=== PATIENT | male | born 1980 | race Caucasian/White ===

== ENCOUNTER 2016-12-16 13:25 | Emergency (ER) | payer OTHER ==
[2016-12-16 14:14] VITALS: BP 144/87
--- NOTE | 2016-12-16 14:16 | UC ---
Neck Pain HPI - HPI Summary HPI Summary: He was trying to crack his 's back and was pulling her and felt a sudden strain/pain in right neck. no numbness or weakness in the right arm. It hurts more to turn his head suddenly. It feels better to sleep without pillow. this has been 5 days. motrin helps a little. - History of Current Complaint Chief Complaint: UCBackPain Stated Complaint: NECK PAIN 5 DAYS Time Seen by Provider: 12/16/16 14:03 Hx Obtained From: Patient Onset/Duration Of Injury/Symptoms: Days Timing: Constant Onset/Duration: Sudden Onset Severity: Moderate Location: Discrete At: - right neck. Character: Aching, Stiff Aggravating Factors: Position, Movement Alleviating Factors: Position Associated Signs & Symptoms: Positive: Negative - Allergies/Home Medications Allergies/Adverse Reactions: Allergies Allergy/AdvReac Type Severity Reaction Status Date / Time No Known Allergies Allergy Verified 12/16/16 14:05 PMH/Surg Hx/FS Hx/Imm Hx Endocrine History Of: Denies: Diabetes - Surgical History Surgical History: Yes Surgery Procedure, Year, and Place: ear tubes - Family History Known Family History: Positive: None - no related neck family history. - Social History Alcohol Use: Rare Substance Use Type: None Smoking Status (MU): Former Smoker Review Of Systems All Other Systems Reviewed And Are Negative: Yes Physical Exam Triage Information Reviewed: Yes Appearance: Well-Appearing, No Pain Distress, Well-Nourished Vital Signs Reviewed: Yes Eyes: Positive: Conjunctiva Clear. Negative: Conjunctiva Inflamed ENT Exam: Normal Neck exam: Normal Neck: Positive: Supple - neck full rom with some pain at the extremes. Spurling neg. no midline spinal tenderness., Nontender, No Lymphadenopathy. Negative: Nuchal Rigidity Respiratory: Positive: Lungs clear, Normal breath sounds, No respiratory distress, No accessory muscle use. Negative: Respiratory distress Cardiovascular Exam: Normal Cardiovascular: Positive: RRR, No Murmur, Pulses Normal Abdominal Exam: Normal Abdomen Description: Positive: Nontender, No Organomegaly, Soft Musculoskeletal: Positive: Strength Intact, No Edema Neurological Exam: Normal Neurological: Positive: Alert, Muscle Tone Normal, Fatigued. Negative: Lethargic, Unresponsive, Abnormal Muscle Tone Psychological Exam: Normal Skin Exam: Normal Skin: Negative: rashes Neck Pain Course/Dx - Course Course Of Treatment: right neck strain without signs or symptoms of radiculopathy. - Differential Dx/Diagnosis Differential Dx/HQI/PQRI: Cervical Fracture, Dislocation, Intracranial Bleed, Sprain, Strain, Torticollis Provider Diagnoses: right cervical strain. Discharge - Discharge Plan Condition: Good Disposition: HOME Prescriptions: Cyclobenzaprine TAB* [Flexeril 10 MG TAB*] 5 mg PO BID PRN #10 tab PRN Reason: Pain Patient Education Materials: Cervical Strain (ED) Referrals: Hanna Perez PA [Primary Care Provider] -
== END 2016-12-16 14:44 | disposition home or self-care (01) ==
LOC: UCCORT 13:25
DX: S16.1XXA Strain of muscle, fascia and tendon at neck level, initial encounter (principal); X50.0XXA Overexertion from strenuous movement or load, initial encounter; Y93.89 Activity, other specified; Y92.9 Unspecified place or not applicable; Z87.891 Personal history of nicotine dependence
CPT/HCPCS: 99212; G0463

== ENCOUNTER 2018-08-31 15:12 | Emergency (ER) | payer OTHER ==
[2018-08-31 15:43] VITALS: BP 131/81
--- NOTE | 2018-08-31 15:58 | UC ---
Complaint Male HPI - HPI Summary HPI Summary: 38-year-old male comes to the clinic today with a chief complaint of dysuria. This been going on for about 3 days. This reminds him of prior urinary tract infection he had in the past. He has some discomfort in his lower abdomen in the lateral aspects bilaterally. Denies any flank pain. The burning with urination is worse when he is urinating. When he is not urinating he has no dysuria. No fevers or chills. Normal bowel movements. Denies any concern of STI. - History of Current Complaint Chief Complaint: UCGU Stated Complaint: URINARY COMPLAINT Time Seen by Provider: 08/31/18 15:38 Pain Intensity: 5 - Allergies/Home Medications Allergies/Adverse Reactions: Allergies Allergy/AdvReac Type Severity Reaction Status Date / Time No Known Allergies Allergy Verified 08/31/18 15:41 Home Medications: Home Medications Ibuprofen TAB* [Motrin TAB* 600 MG] 600 mg PO Q8H PRN 08/31/18 [History Confirmed 08/31/18] PMH/Surg Hx/FS Hx/Imm Hx Previously Healthy: Yes - Surgical History Surgical History: Yes Surgery Procedure, Year, and Place: ear tubes - Family History Known Family History: Positive: None - no related neck family history. - Social History Alcohol Use: None Substance Use Type: Marijuana Substance Use Comment - Amount & Last Used: 3 times a week Smoking Status (MU): Heavy Every Day Tobacco Smoker Type: Cigarettes Amount Used/How Often: 1/2-1 PPD Length of Time of Smoking/Using Tobacco: since age 14 Review of Systems All Other Systems Reviewed And Are Negative: Yes Constitutional: Positive: Negative Skin: Positive: Negative Eyes: Positive: Negative ENT: Positive: Negative Respiratory: Positive: Negative Cardiovascular: Positive: Negative Gastrointestinal: Positive: Abdominal Pain Genitourinary: Positive: Dysuria, Frequency, Urgency, Other - DENIES TESTICULAR/ SCROTAL PAIN. Negative: Hematuria, Vaginal/Penile Discharge Motor: Positive: Negative Neurovascular: Positive: Negative Musculoskeletal: Positive: Negative Neurological: Positive: Negative Psychological: Positive: Negative Is Patient Immunocompromised?: No Physical Exam Triage Information Reviewed: Yes Appearance: Well-Appearing, Well-Nourished, Pain Distress - MILD Vital Signs: Initial Vital Signs Temp 99.4 F 08/31/18 15:37 Pulse 85 08/31/18 15:37 Resp 16 08/31/18 15:37 BP 131/81 08/31/18 15:37 Pulse Ox 100 08/31/18 15:37 Vital Signs Reviewed: Yes Eye Exam: Normal Eyes: Positive: Conjunctiva Clear Neck exam: Normal Neck: Positive: Supple Respiratory: Positive: Lungs clear, Normal breath sounds, No respiratory distress Cardiovascular: Positive: RRR Abdomen Description: Positive: Soft, Other: - MILD TENDERNESS TO PALPATION LEFT AND RIGHT LATERAL ABDOMEN. NO REBOUND.. Negative: CVA Tenderness (R), CVA Tenderness (L) Bowel Sounds: Positive: Present Musculoskeletal Exam: Normal Musculoskeletal: Positive: Strength Intact, ROM Intact Neurological: Positive: Alert, Muscle Tone Normal Psychological Exam: Normal Psychological: Positive: Age Appropriate Behavior Skin Exam: Normal Complaint Male Course/Dx - Course Course Of Treatment: There are some leukocytes in the urine. Patient reports the symptoms are consistent with his urinary tract infection in the past. We discussed getting an abdomen pelvis CT for further evaluation of his abdominal pain. Patient declines at this time. Plan will be to treat with antibiotics and if the patient does not improve or if he worsens he is to get reevaluated in the emergency department. - Differential Dx/Diagnosis Provider Diagnosis: Dysuria, UTI (urinary tract infection), Abdominal pain Discharge - Sign-Out/Discharge Documenting (check all that apply): Patient Departure All imaging exams completed and their final reports reviewed: No Studies - Discharge Plan Condition: Stable Disposition: HOME Prescriptions: Sulfamethox/Trimethoprim DS* [Bactrim DS 800/160 TAB*] 1 tab PO BID #28 tab Patient Education Materials: Urinary Tract Infection in Men (ED), Acute Abdominal Pain (ED), Dysuria (ED) Referrals: [facility] [place] [facility]IAN REFERRAL [Outside] Additional Instructions: FOLLOW UP WITH YOUR DOCTOR. GO TO THE EMERGENCY DEPARTMENT FOR ANY WORSENING OF YOUR CONDITION; PAIN, FEVER , YOU FEEL ILL OR QUESTIONS OR CONCERNS. - Billing Disposition and Condition Condition: STABLE Disposition: Home
== END 2018-08-31 16:05 | disposition home or self-care (01) ==
LOC: UCCORT 15:12
DX: R30.0 Dysuria (principal); N39.0 Urinary tract infection, site not specified; R10.9 Unspecified abdominal pain
CPT/HCPCS: 81003; 87086; 99212; G0463